=== PATIENT | male | born 1940 | race Asian ===

== ENCOUNTER 2019-10-14 19:10 | Emergency (ER) | payer OTHER ==
[~2019-10-14] VITALS: Ht 165.1 cm; Wt 53.5 kg
[2019-10-14 19:13] VITALS: BP_SYST 159
--- NOTE | 2019-10-14 19:58 | NUR ---
Patient to ER bed 07 to gown for evaluation. Side rails up.
--- NOTE | 2019-10-14 19:58 | NUR ---
Pt off the unit for CT
--- NOTE | 2019-10-14 20:00 | NUR ---
ER at bedside examining patient.
--- NOTE | 2019-10-14 20:54 | NUR ---
Patient given written and verbal discharge instructions and verbalizes understanding. ER MD discussed with patient the results and treatment provided. Patient in stable condition. ID arm band removed. NO Rx of given. Patient educated on pain management and to follow up with PMD. Pain Scale 0/10. Opportunity for questions provided and answered. Medication side effect fact sheet provided.
[2019-10-14 20:56] VITALS: BP_SYST 164
== END 2019-10-14 20:56 | disposition home or self-care (01) ==
LOC: SED 19:10
DX: S00.03XA Contusion of scalp, initial encounter (principal); I10 Essential (primary) hypertension; E11.9 Type 2 diabetes mellitus without complications; W18.39XA Other fall on same level, initial encounter; Y93.89 Activity, other specified; Y92.89 Other specified places as the place of occurrence of the external cause; Y99.8 Other external cause status
CPT/HCPCS: 70450-TC; 99284

== ENCOUNTER 2022-09-04 09:35 | Emergency (ER) | payer OTHER ==
[~2022-09-04] VITALS: Ht 160 cm; Wt 52.2 kg
[2022-09-04 09:48] VITALS: BP_SYST 135
--- NOTE | 2022-09-04 10:35 | NUR ---
MD BONE IN TRIAGE FOR MSE.
--- NOTE | 2022-09-04 13:03 | NUR ---
Patient given written and verbal discharge instructions and verbalizes understanding. ER MD discussed with patient the results and treatment provided. Patient in stable condition. ID arm band removed. No Rx given. Patient educated on pain management and to follow up with PMD. Pain Scale 2/10 . Opportunity for questions provided and answered. Medication side effect fact sheet provided.
[2022-09-04 13:04] VITALS: BP_SYST 135
== END 2022-09-04 13:04 | disposition home or self-care (01) ==
LOC: SED 09:35
DX: R07.89 Other chest pain (principal); E11.9 Type 2 diabetes mellitus without complications; I10 Essential (primary) hypertension; Z79.899 Other long term (current) drug therapy; V89.2XXA Person injured in unspecified motor-vehicle accident, traffic, initial encounter; Y93.89 Activity, other specified; Y92.89 Other specified places as the place of occurrence of the external cause; Y99.8 Other external cause status
CPT/HCPCS: 71045; 99283

== ENCOUNTER 2022-10-19 11:39 | Emergency (ER) | payer OTHER ==
[~2022-10-19] VITALS: Ht 160 cm; Wt 52.2 kg
[2022-10-19 12:16] VITALS: BP_SYST 158
--- NOTE | 2022-10-19 12:25 | NUR ---
Patient to ER bed triage to gown for evaluation. Side rails up.
--- NOTE | 2022-10-19 12:26 | NUR ---
ER at bedside examining patient.
--- NOTE | 2022-10-19 12:35 | NUR ---
Pt c/o rib pain s/p mech fall w/o syncope.
[2022-10-19] MEDS ORDERED: NAPR-1172 PO (15:01)
[2022-10-19 15:05] VITALS: BP_SYST 158
--- NOTE | 2022-10-19 15:05 | NUR ---
Patient given written and verbal discharge instructions by Dr. Cunningham and verbalizes understanding. ER MD discussed with patient the results and treatment provided. Patient in stable condition. ID arm band removed. Rx of Naproxen given. Patient educated on pain management and to follow up with PMD. Pain Scale 2. Opportunity for questions provided and answered. Medication side effect fact sheet provided.
== END 2022-10-19 15:05 | disposition home or self-care (01) ==
LOC: SED 11:39
DX: S22.31XA Fracture of one rib, right side, initial encounter for closed fracture (principal); E11.9 Type 2 diabetes mellitus without complications; I10 Essential (primary) hypertension; Z79.899 Other long term (current) drug therapy; W20.8XXA Other cause of strike by thrown, projected or falling object, initial encounter; Y93.89 Activity, other specified; Y92.89 Other specified places as the place of occurrence of the external cause; Y99.8 Other external cause status
CPT/HCPCS: 70450-TC; 71100; 72125-TC; 72192-TC; 76376; 99284